=== PATIENT | female | born 1960 ===

== ENCOUNTER → 2022-11-02 | Outpatient (CLI) | payer OTHER ==
[~2022-11-02] MED LIST: LEVSOD100 PO
== END | disposition home or self-care (01) ==
LOC: LAB SHORT 13:41 → LAB 13:41
DX: R31.9 Hematuria, unspecified (principal)
CPT/HCPCS: 87086; 87147

== ENCOUNTER → 2023-02-27 | Outpatient (CLI) | payer OTHER | LOC: LAB 13:54 → LAB SHORT 13:54 | DX: R30.0 Dysuria (principal) | CPT/HCPCS: 87086 ==